=== PATIENT | male | born 1965 | race American Indian/Alaskan Native ===

== ENCOUNTER 2020-02-11 15:35 | Emergency (ER) | payer MEDICARE ==
[2020-02-11 16:15] VITALS: BP 111/62
--- NOTE | 2020-02-11 16:20 | Event Note ---
ED Screening Note ED Screening Note: +dysuria +hematuria PMHx ESRD went to dialysis yesterday no n/v/d no fever no abd pain no urinary retention pt states he has not been sexually active in multiple years This initial assessment/diagnostic orders/clinical plan/treatment(s) is/are subject to change based on patients health status, clinical progression and re- assessment by fellow clinical providers in the ED. Further treatment and workup at subsequent clinical providers discretion. Patient/guardian urged not to elope from the ED as their condition may be serious if not clinically assessed and managed. Initial orders include: ua
[2020-02-11 17:04] LABS: Bacteria,Urine 4+ /HPF (Negative); Bilirubin,Urine NEG (Negative); Blood,Urine MOD (Negative); Color,Urine Yellow (Yellow); Hyaline Casts,Urine 10 /LPF; Mucus,Urine FEW /HPF; Sperm,Urine 2+ /HPF (NP); Urobilinogen,Urine < 2.0 mg/dL (<2.0)
[2020-02-11 17:06] LABS: Protein,Urine >500 mg/dL (Negative); RBC,Urine > 182.0 /HPF (0.0-6.0); WBC,Urine > 182.0 /HPF (0.0-6.0)
[2020-02-11 18:57] LABS: Basophils # (Auto) 0.1 K/mm3 (0.0-0.1); Basophils % (Auto) 0.6 % (0.0-1.8); Eosinophils # (Auto) 0.2 K/mm3 (0.0-0.4); Eosinophils % (Auto) 1.6 % (0.0-4.3); Hematocrit 33.1 % (35.5-45.6); Hemoglobin 11.6 gm/dl (11.8-15.2); Lymphocytes # (Auto) 2.1 K/mm3 (1.2-5.4); Lymphocytes % (Auto) 21.8 % (13.4-35.0); Mean Corpuscular HGB Conc 35 % (32-34); Mean Corpuscular Volume 102 fl (84-94); Monocytes # (Auto) 0.8 K/mm3 (0.0-0.8); Monocytes % (Auto) 8.7 % (0.0-7.3); Platelet Count 246 K/mm3 (140-440); Red Blood Count 3.24 M/mm3 (3.65-5.03)
[2020-02-11 19:14] LABS: Calcium 9.8 mg/dL (8.4-10.2)
--- NOTE | 2020-02-11 21:09 | Emergency Department Report ---
ED Male HPI - General Chief complaint: Urogenital-Male Stated complaint: DIFFICULTY URINATING Time Seen by Provider: 02/11/20 16:19 Source: patient Mode of arrival: Ambulatory Limitations: No Limitations - History of Present Illness Initial comments: 54-year-old -[place] male with end-stage renal failure patient on hemodialysis presents to the emergency department complaining of a couple day history of increased urinary urgency decreased urinary production and burning sensation reports no penile discharge or any worry of an STD. Reports no fever, chills, sweats no flank pain. MD Complaint: dysuria Radiation: none Severity: mild Quality: burning Consistency: constant Worsens with: urination new medication denies: urinary retention, blood in urine - Related Data Previous Rx's Medication Instructions Recorded Last Taken Type Ciprofloxacin HCl [Ciprofloxacin 250 mg PO BID #14 tablet 02/11/20 Unknown Rx TAB] Allergies Allergy/AdvReac Type Severity Reaction Status Date / Time No Known Allergies Allergy Unverified 02/11/20 16:11 ED Review of Systems ROS: Stated complaint: DIFFICULTY URINATING Other details as noted in HPI Comment: All other systems reviewed and negative ED Past Medical Hx - Past Medical History Previous Medical History?: Yes Hx Renal Disease: Yes - Surgical History Past Surgical History?: Yes Additional Surgical History: dialysis graft placed. - Medications Home Medications: Home Medications Medication Instructions Recorded Confirmed Last Taken Type Ciprofloxacin HCl [Ciprofloxacin 250 mg PO BID #14 tablet 02/11/20 Unknown Rx TAB] ED Physical Exam - General Limitations: No Limitations General appearance: alert, in no apparent distress - Head Head exam: Present: atraumatic, normocephalic - Eye Eye exam: Present: normal appearance, PERRL, EOMI Pupils: Present: normal accommodation - ENT ENT exam: Present: mucous membranes moist - Neck Neck exam: Present: normal inspection - Respiratory Respiratory exam: Present: normal lung sounds bilaterally. Absent: respiratory distress - Cardiovascular Cardiovascular Exam: Present: regular rate, normal rhythm. Absent: systolic murmur, diastolic murmur, rubs, gallop - GI/Abdominal GI/Abdominal exam: Present: soft, normal bowel sounds - Rectal Rectal exam: Present: deferred - Extremities Exam Extremities exam: Present: normal inspection - Back Exam Back exam: Present: normal inspection - Neurological Exam Neurological exam: Present: alert, oriented X3 - Psychiatric Psychiatric exam: Present: normal affect, normal mood - Skin Skin exam: Present: warm, dry, intact, normal color. Absent: rash ED Course Vital Signs 02/11/20 16:12 Temperature 98.0 F Pulse Rate 78 Respiratory 18 Rate Blood Pressure 111/62 O2 Sat by Pulse 100 Oximetry - Consultations Consultation #1: 02/11/20 21:06 Patient is a end-stage renal failure patient currently on hemodialysis discussed the case with Dr. Kaiser who recommended start him on Cipro 250 mg twice daily. 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 No systemic symptoms. Not septic. She is well- appearing. Low suspicion for acute pyelonephritis given the lack of fever, CVA tenderness, or systemic features. Low suspicion for for kidney stone or infected stone. Not in age range for and her history and and presentation are complicated. No no indications for labs or imaging at this time. Critical care attestation.: If time is entered above; I have spent that time in minutes in the direct care of this critically ill patient, excluding procedure time. ED Disposition Clinical Impression: UTI (urinary tract infection) Disposition: DC-01 TO HOME OR SELFCARE Is pt being admited?: No Does the pt Need Aspirin: No Condition: Stable Instructions: Phenazopyridine (By mouth), Dysuria (ED), Urinary Tract Infection in Men (ED) Additional Instructions: Please be sure to follow-up with your tread tuber machine operator for further evaluation and treatment of this urinary tract infection and advised him of the medication that were prescribed today Prescriptions: Ciprofloxacin HCl [Ciprofloxacin TAB] 250 mg PO BID #14 tablet Referrals: CANDIS SHIRLEY MD [Primary Care Provider] - 3-5 Days
== END 2020-02-11 21:34 | disposition home or self-care (01) ==
LOC: ED 15:35
DX: N39.0 Urinary tract infection, site not specified (principal); Z87.448 Personal history of other diseases of urinary system; Z98.890 Other specified postprocedural states; Z79.2 Long term (current) use of antibiotics
CPT/HCPCS: 36415; 80048; 81001; 82550; 85025

== ENCOUNTER 2020-07-25 10:13 | Emergency (ER) | payer MEDICARE ==
[2020-07-25 10:28] VITALS: BP 118/63
--- NOTE | 2020-07-25 10:32 | Emergency Department Report ---
ED General Adult HPI - General Chief complaint: Sore Throat Stated complaint: RENAL PATIENT/DEHYDRATED PUI?: No Time Seen by Provider: 07/25/20 10:27 Source: patient Mode of arrival: Ambulatory Limitations: No Limitations - History of Present Illness Initial comments: Patient is a 55-year-old -[place] male who comes to the ER for medical clearance for his dialysis tomorrow. He was last dialyzed on Friday. He is due for dialysis tomorrow but states that his clinic will require him to have medical clearance. The reason the patient missed his dialysis on Friday was due to his pharyngitis. He saw his primary care for the pharyngitis who started him on amoxicillin. He is taking the medication he states that he is feeling better. Patient is ambulatory nontoxic and [id number] in triage -: Gradual, days(s) Consistency: constant Improves with: medication Worsens with: none Associated Symptoms: denies other symptoms Treatments Prior to Arrival: none - Related Data Allergies Allergy/AdvReac Type Severity Reaction Status Date / Time No Known Allergies Allergy Unverified 02/11/20 16:11 ED Review of Systems ROS: Stated complaint: RENAL PATIENT/DEHYDRATED Other details as noted in HPI Comment: All other systems reviewed and negative ED Past Medical Hx - Past Medical History Previous Medical History?: Yes Hx Hypertension: Yes Hx Renal Disease: Yes - Surgical History Past Surgical History?: Yes Additional Surgical History: dialysis graft placed. - Family History Family history: no significant - Social History Smoking Status: Never Smoker Substance Use Type: None ED Physical Exam - General Limitations: No Limitations General appearance: alert, in no apparent distress - Head Head exam: Present: atraumatic, normocephalic - Eye Eye exam: Present: normal appearance - ENT ENT exam: Present: mucous membranes moist - Neck Neck exam: Present: normal inspection - Respiratory Respiratory exam: Present: normal lung sounds bilaterally. Absent: respiratory distress - Cardiovascular Cardiovascular Exam: Present: regular rate, normal rhythm. Absent: systolic murmur, diastolic murmur, rubs, gallop - GI/Abdominal GI/Abdominal exam: Present: soft, normal bowel sounds - Rectal Rectal exam: Present: deferred - Extremities Exam Extremities exam: Present: normal inspection - Back Exam Back exam: Present: normal inspection - Neurological Exam Neurological exam: Present: alert, oriented X3 - Psychiatric Psychiatric exam: Present: normal affect, normal mood - Skin Skin exam: Present: warm, dry, intact, normal color. Absent: rash ED Course Vital Signs 07/25/20 10:26 Temperature 98.1 F Pulse Rate 79 Respiratory 20 Rate Blood Pressure 118/63 O2 Sat by Pulse 100 Oximetry ED Medical Decision Making - Lab Data Result diagrams: 07/25/20 10:37 07/25/20 10:37 - Radiology Data Radiology results: report reviewed, image reviewed - Medical Decision Making Dr Alfonso Lab Results 07/25/20 07/25/20 07/25/20 Range/Units 10:37 10:37 10:37 WBC 11.6 H (4.5-11.0) K/mm3 RBC 2.83 L (3.65-5.03) M/mm3 Hgb 9.3 L (11.8-15.2) gm/dl Hct 27.5 L (35.5-45.6) % MCV 97 H (84-94) fl MCH 33 H (28-32) pg MCHC 34 (32-34) % RDW 14.8 (13.2-15.2) % Plt Count 152 (140-440) K/mm3 Lymph % (Auto) 8.8 L (13.4-35.0) % [place] % (Auto) 9.6 H (0.0-7.3) % Eos % (Auto) 0.0 (0.0-4.3) % Baso % (Auto) 0.3 (0.0-1.8) % Lymph # (Auto) 1.0 L (1.2-5.4) K/mm3 [place] # (Auto) 1.1 H (0.0-0.8) K/mm3 Eos # (Auto) 0.0 (0.0-0.4) K/mm3 Baso # (Auto) 0.0 (0.0-0.1) K/mm3 Seg Neutrophils % 81.3 H (40.0-70.0) % Seg Neutrophils # 9.4 H (1.8-7.7) K/mm3 Sodium 134 L (137-145) mmol/L Potassium 4.4 (3.6-5.0) mmol/L Chloride 89.7 L (98-107) mmol/L Carbon Dioxide 28 (22-30) mmol/L Anion Gap 21 mmol/L BUN 90 H (9-20) mg/dL Creatinine 18.1 H (0.8-1.3) mg/dL Estimated GFR 3 ml/min BUN/Creatinine Ratio 5 % Glucose 116 H (75-100) mg/dL Calcium 9.4 (8.4-10.2) mg/dL Phosphorus 5.60 H (2.5-4.5) mg/dL Total Bilirubin 0.40 (0.1-1.2) mg/dL AST 10 (5-40) units/L ALT 8 (7-56) units/L Alkaline Phosphatase 29 L (35-129) units/L Total Protein 8.0 (6.3-8.2) g/dL Albumin 4.3 (3.9-5) g/dL Albumin/Globulin Ratio 1.2 % Vital Signs 07/25/20 10:26 Temperature 98.1 F Pulse Rate 79 Respiratory 20 Rate Blood Pressure 118/63 O2 Sat by Pulse 100 Oximetry Labs noted. K is nonlife-threatening. Patient is going for HD tomorrow. Patient is on amoxicillin as given by his PCP for his pharyngitis. Patient discharged home with discharge instructions. He verbalizes understanding of plan of care - Differential Diagnosis URI medical clearance for HD Critical care attestation.: If time is entered above; I have spent that time in minutes in the direct care of this critically ill patient, excluding procedure time. ED Disposition Clinical Impression: ESRD (end stage renal disease), URI (upper respiratory infection) Disposition: DC-01 TO HOME OR SELFCARE Is pt being admited?: No Does the pt Need Aspirin: No Condition: Stable Additional Instructions: Continue the antibiotics that your primary care gave you for your upper respiratory pharyngitis Renal diet Activity as tolerated Follow-up with primary care You are cleared for dialysis tomorrow Referrals: ALETHA PEREZ MD [Staff Physician] - 3-5 Days Time of Disposition: 11:37
[2020-07-25 10:58] LABS: Basophils % (Auto) 0.3 % (0.0-1.8); Hematocrit 27.5 % (35.5-45.6); Hemoglobin 9.3 gm/dl (11.8-15.2); Lymphocytes % (Auto) 8.8 % (13.4-35.0); Mean Corpuscular HGB Conc 34 % (32-34); Mean Corpuscular Volume 97 fl (84-94); Monocytes # (Auto) 1.1 K/mm3 (0.0-0.8); Monocytes % (Auto) 9.6 % (0.0-7.3); Platelet Count 152 K/mm3 (140-440); Red Blood Count 2.83 M/mm3 (3.65-5.03); Red Cell Distribution Width 14.8 % (13.2-15.2)
--- NOTE | 2020-07-25 11:05 | XRay Report ---
CHEST 2 VIEWS INDICATION: SOB. Source scratchy throat. No fever. Mild cough for 2 days. COMPARISON: None FINDINGS: Support devices: None. Heart: Within normal limits. Lungs/pleura: No acute air space or interstitial disease. No pneumothorax. Additional findings: Moderate thoracolumbar scoliosis IMPRESSION: No acute findings. Signer Name: Norberto Grady Jr, MD Signed: 07/25/2020 11:00 AM Workstation Name: [id number]
[2020-07-25 11:20] LABS: Albumin 4.3 g/dL (3.9-5); Calcium 9.4 mg/dL (8.4-10.2)
== END 2020-07-25 12:13 | disposition home or self-care (01) ==
LOC: ED 10:13
DX: I12.0 Hypertensive chronic kidney disease with stage 5 chronic kidney disease or end stage renal disease (principal); N18.6 End stage renal disease; J06.9 Acute upper respiratory infection, unspecified; Z99.2 Dependence on renal dialysis
CPT/HCPCS: 36415; 71046; 80053; 84100; 85025; 99283

== ENCOUNTER 2020-10-17 11:37 | Emergency (ER) | payer MEDICARE ==
--- NOTE | 2020-10-17 11:56 | Event Note ---
ED Screening Note Date of service: 10/17/20 Time: 11:55 ED Screening Note: Patient presents for dialysis States dialysis machine at home not working Patient does have swelling This initial assessment/diagnostic orders/clinical plan/treatment(s) is/are subject to change based on patients health status, clinical progression and re- assessment by fellow clinical providers in the ED. Further treatment and workup at subsequent clinical providers discretion. Patient/guardian urged not to elope from the ED as their condition may be serious if not clinically assessed and managed. Initial orders include: Labs Further eval in Main ED
[2020-10-17 12:18] LABS: Basophils % (Auto) 0.5 % (0.0-1.8); Eosinophils # (Auto) 0.1 K/mm3 (0.0-0.4); Eosinophils % (Auto) 1.4 % (0.0-4.3); Hematocrit 23.9 % (35.5-45.6); Lymphocytes % (Auto) 17.2 % (13.4-35.0); Mean Corpuscular HGB Conc 33 % (32-34); Mean Corpuscular Volume 97 fl (84-94); Monocytes # (Auto) 0.6 K/mm3 (0.0-0.8); Monocytes % (Auto) 11.1 % (0.0-7.3); Platelet Count 165 K/mm3 (140-440); Red Blood Count 2.46 M/mm3 (3.65-5.03); Red Cell Distribution Width 17.8 % (13.2-15.2)
--- NOTE | 2020-10-17 16:38 | Emergency Department Report ---
ED General Adult HPI - General Chief complaint: High BP Stated complaint: My legs are swollen PUI?: No Time Seen by Provider: 10/17/20 16:04 Source: patient, RN notes reviewed Mode of arrival: Ambulatory Limitations: No Limitations - History of Present Illness Initial comments: The patient was evaluated in the emergency department for symptoms described in the history of present illness. He/she was evaluated in the context of the global COVID-19 pandemic, which necessitated consideration that the patient might be at risk for infection with the virus that causes COVID-19. Institutional protocols and algorithms that pertain to the evaluation of patients at risk for COVID-19 are in a state of rapid change based on informa tion released by regulatory bodies including the CDC and federal and state organizations. These policies and algorithms were followed during the patient's care in the emergency department. Please note that these policies, procedures and recommendations changed on a rapid basis. Nephrology: Dr Curry Past medical history: Hypertension, end-stage renal disease on hemodialysis, home hemodialysis, left upper extremity fistula The patient is a pleasant 55-year-old gentleman, presenting to the ER today with a complaint of nontraumatic painless minimal swelling to his bilateral lower extremities. The patient denies headache, neck pain, chest pain, abdominal pain, shortness of breath, loss of taste and smell, hematemesis and bright red blood per rectum, or dysuria. He is currently on home hemodialysis. He feels like he is slightly above his typical water weight. He reports that he is typically 90 kg, and recently was weighed in at 99 kg. He endorses compliance with his medications, and denies dietary indiscretions. He denies additional complaints. He is asking if he needs dialysis. -: days(s) Location: left, right, lower extremity Consistency: constant Improves with: none Worsens with: none Associated Symptoms: denies other symptoms - Related Data Home Medications Medication Instructions Recorded Confirmed Last Taken Ergocalciferol [Vitamin D2] 1 cap PO 1XW 07/27/20 08/21/20 Unknown Ferric Citrate (Nf) [Auryxia] 3 tab PO TID 07/27/20 08/21/20 Unknown Previous Rx's Medication Instructions Recorded Last Taken Type amLODIPine 10 mg PO QDAY #30 tablet 08/24/20 Unknown Rx carvediloL [Coreg] 3.125 mg PO BID #60 tablet 08/24/20 Unknown Rx Allergies Allergy/AdvReac Type Severity Reaction Status Date / Time No Known Allergies Allergy Verified 10/17/20 11:53 ED Review of Systems ROS: Stated complaint: DIALYSIS TREATMENT Other details as noted in HPI Comment: All other systems reviewed and negative Musculoskeletal: other (Painless bilateral lower extremity swelling) ED Past Medical Hx - Past Medical History Hx Hypertension: Yes Hx Renal Disease: Yes - Surgical History Additional Surgical History: dialysis graft placed - HEATHER - Social History Smoking Status: Never Smoker Substance Use Type: None - Medications Home Medications: Home Medications Medication Instructions Recorded Confirmed Last Taken Type Ergocalciferol [Vitamin D2] 1 cap PO 1XW 07/27/20 08/21/20 Unknown History Ferric Citrate (Nf) [Auryxia] 3 tab PO TID 07/27/20 08/21/20 Unknown History amLODIPine 10 mg PO QDAY #30 tablet 08/24/20 Unknown Rx carvediloL [Coreg] 3.125 mg PO BID #60 tablet 08/24/20 Unknown Rx ED Physical Exam - General Limitations: No Limitations General appearance: alert, in no apparent distress - Head Head exam: Present: atraumatic, normocephalic - Eye Eye exam: Present: normal appearance, EOMI. Absent: nystagmus - ENT ENT exam: Present: normal exam, normal orophraynx, mucous membranes moist, normal external ear exam - Neck Neck exam: Present: normal inspection, full ROM. Absent: tenderness, meningismus - Respiratory Respiratory exam: Present: normal lung sounds bilaterally. Absent: respiratory distress, wheezes, rales, rhonchi, stridor, decreased breath sounds - Cardiovascular Cardiovascular Exam: Present: regular rate, normal rhythm, normal heart sounds. Absent: bradycardia, tachycardia, irregular rhythm, systolic murmur, diastolic murmur, rubs, gallop - GI/Abdominal GI/Abdominal exam: Present: soft. Absent: distended, tenderness, guarding, rebound, rigid, pulsatile mass - Rectal Rectal exam: Present: deferred - Extremities Exam Extremities exam: Present: normal inspection, full ROM, pedal edema (1-2+ edema noted in the bilateral lower extremities), other (2+ pulses noted in the bilateral upper and lower extremities. There is no palpable cord. negative Homans sign. Muscular compartments are soft. The pelvis is stable.). Absent: calf tenderness - Back Exam Back exam: Present: normal inspection, full ROM. Absent: tenderness, CVA tenderness (R), CVA tenderness (L), paraspinal tenderness, vertebral tenderness - Neurological Exam Neurological exam: Present: alert, normal gait, other (No facial droop. Tongue midline. Extraocular movements intact bilaterally. Facial sensation intact to light touch in V1, V2, V3 distribution bilaterally. 5 and a 5 strength in 4 extremities. Sensation intact to light touch in 4 extremities.). Absent: motor sensory deficit - Psychiatric Psychiatric exam: Present: normal affect, normal mood - Skin Skin exam: Present: warm, dry, intact, normal color. Absent: rash ED Course Vital Signs 10/17/20 10/17/20 10/17/20 11:50 15:57 17:18 Temperature 98.8 F Pulse Rate 77 75 Respiratory 18 16 19 Rate Blood Pressure 177/90 Blood Pressure 193/100 [Right] O2 Sat by Pulse 100 100 Oximetry 10/17/20 10/17/20 17:20 17:21 Temperature Pulse Rate 73 76 Respiratory Rate Blood Pressure 193/100 193/100 Blood Pressure [Right] O2 Sat by Pulse Oximetry ED Medical Decision Making - Lab Data Result diagrams: 10/17/20 12:01 10/17/20 12:01 Vital Signs 10/17/20 10/17/20 10/17/20 11:50 15:57 17:18 Temperature 98.8 F Pulse Rate 77 75 Respiratory 18 16 19 Rate Blood Pressure 177/90 Blood Pressure 193/100 [Right] O2 Sat by Pulse 100 100 Oximetry 10/17/20 10/17/20 17:20 17:21 Temperature Pulse Rate 73 76 Respiratory Rate Blood Pressure 193/100 193/100 Blood Pressure [Right] O2 Sat by Pulse Oximetry Lab Results 10/17/20 10/17/20 Range/Units 12:01 12:01 WBC 5.7 (4.5-11.0) K/mm3 RBC 2.46 L (3.65-5.03) M/mm3 Hgb 8.0 L (11.8-15.2) gm/dl Hct 23.9 L (35.5-45.6) % MCV 97 H (84-94) fl MCH 33 H (28-32) pg MCHC 33 (32-34) % RDW 17.8 H (13.2-15.2) % Plt Count 165 (140-440) K/mm3 Lymph % (Auto) 17.2 (13.4-35.0) % [place] % (Auto) 11.1 H (0.0-7.3) % Eos % (Auto) 1.4 (0.0-4.3) % Baso % (Auto) 0.5 (0.0-1.8) % Lymph # (Auto) 1.0 L (1.2-5.4) K/mm3 [place] # (Auto) 0.6 (0.0-0.8) K/mm3 Eos # (Auto) 0.1 (0.0-0.4) K/mm3 Baso # (Auto) 0.0 (0.0-0.1) K/mm3 Seg Neutrophils % 69.8 (40.0-70.0) % Seg Neutrophils # 3.9 (1.8-7.7) K/mm3 Sodium 143 (137-145) mmol/L Potassium 5.3 H (3.6-5.0) mmol/L Chloride 106.6 (98-107) mmol/L Carbon Dioxide 21 L (22-30) mmol/L Anion Gap 21 mmol/L BUN 78 H (9-20) mg/dL Creatinine 14.6 H (0.8-1.3) mg/dL Estimated GFR 4 ml/min BUN/Creatinine Ratio 5 % Glucose 90 (75-100) mg/dL Calcium 9.0 (8.4-10.2) mg/dL - Medical Decision Making Differential diagnosis, including but not limited to: Lower extremity edema, end-stage renal disease on hemodialysis, anemia of chronic disease, metabolic acidosis secondary to renal insufficiency, elevated potassium Assessment and plan: 55-year-old gentleman, who is afebrile with reassuring vital signs with the exception of chronically elevated blood pressure; please reference the [employer] clinical policy on asymptomatic hypertension, who presents to the ER today with a complaint of painless bilateral lower extremity swelling. Lungs are clear, with no crackles or rales. Contacted nephrology on-call, Dr. Maida Rocha, And have discussed the patient's history, physical, pertinent laboratory studies. We are both in agreement that this patient does not meet criteria for admission for emergency hemodialysis. Dr. Rocha Advises that oral Lasix would be acceptable, which we agree with, continuation of antihypertensive therapy, and he further advises that the patient should contact his dialysis clinic first thing in the morning tomorrow, to arrange outpatient hemodialysis. If, in the unlikely event, the patient is not able to secure an outpatient hemodialysis appointment, he should return to this emergency room for repeat laboratory studies. I have discussed this plan of care with the patient, who has articulated understanding, and endorsed a desire to be discharged so he can follow-up. On multiple repeat evaluations, he is resting comfortably on his stretcher, saturating 99% on room air, and in no acute respiratory distress. Return precautions are reviewed. Critical care attestation.: If time is entered above; I have spent that time in minutes in the direct care of this critically ill patient, excluding procedure time. ED Disposition Clinical Impression: Lower extremity edema, Elevated blood pressure reading, End stage renal disease on dialysis Disposition: DC- TO HOME OR SELFCARE Is pt being admited?: No Does the pt Need Aspirin: No Condition: Good Instructions: Dialysis Additional Instructions: Please continue current outpatient medications. Please make certain to contact your dialysis clinic first thing in the morning tomorrow to arrange outpatient hemodialysis. If patient is not able to secure an appointment/chair time tomorrow for outpatient hemodialysis, please return to the emergency room for repeat laboratory studies. Please make certain to consume minimum salt, and a diabetic/renal appropriate diet. Please return to the emergency room right away with new pain, worsened pain, migration of pain, projectile vomiting, change in mental status, confusion, inability to tolerate liquid feeds, new, worsened or different symptoms not present on the initial emergency room evaluation. Referrals: KASSANDRA KNIGHT MD [Staff Physician] - 24 Hours
[2020-10-17] MEDS ORDERED: carvediloL 3.125 MG TAB PO STA (16:50)
[2020-10-17] MEDS ORDERED: amLODIPine 10 MG TAB PO STA (16:50)
[2020-10-17] MEDS ORDERED: FUROSEMIDE 20 MG TAB PO ONE (16:51)
[2020-10-17 17:19] VITALS: BP 193/100
== END 2020-10-17 18:00 | disposition home or self-care (01) ==
LOC: ED 11:37
DX: R60.0 Localized edema (principal); R03.0 Elevated blood-pressure reading, without diagnosis of hypertension; N18.6 End stage renal disease; Z99.2 Dependence on renal dialysis; Z79.899 Other long term (current) drug therapy
CPT/HCPCS: 36415; 80048; 85025; 99283